=== PATIENT | female | born 1975 | race Caucasian/White ===

== ENCOUNTER 2022-01-18 05:42 | Observation (INO) ==
[2022-01-18 07:19] LABS: Albumin Globulin Ratio 1.6 (0.9-2); Albumin Level 4.2 gm/dl (3.4-5.0); BUN Creatinine Ratio 11.5 (10-20); Bilirubin,Total 0.6 mg/dl (0.2-1.0); Calcium 8.6 mg/dl (8.5-10.1); Creatinine Clr Calc Pharmacy 41.3 ml/min; Est GFR (African American) 35.6 ml/min; Est GFR (Non-African American) 30.7 ml/min; Globulin 2.7 gm/dl (2.5-4.0); Potassium 3.4 mmol/L (3.5-5.1); Total Protein 6.9 gm/dl (6.0-8.3)
[2022-01-18 07:45] LABS: Adenovirus PCR Not Detected (NotDetected); Bordetella parapertussis PCR Not Detected (NotDetected); Bordetella pertussis PCR Not Detected (NotDetected); Chlamydia pneumoniae PCR Not Detected (NotDetected); Coronavirus 229E PCR Not Detected (NotDetected); Coronavirus HKU1 PCR Not Detected (NotDetected); Coronavirus NL63 PCR Not Detected (NotDetected); Coronavirus OC43PCR Not Detected (NotDetected); Human Metapneumovirus PCR Not Detected (NotDetected); Influenza A PCR Not Detected (NotDetected); Influenza B PCR Not Detected (NotDetected); Mycoplasma pneumoniae PCR Not Detected (NotDetected); Parainfluenza Virus 1 PCR Not Detected (NotDetected); Parainfluenza Virus 2 PCR Not Detected (NotDetected); Parainfluenza Virus 3 PCR Not Detected (NotDetected); Parainfluenza Virus 4 PCR Not Detected (NotDetected); Respiratory Syncytial VirusPCR Not Detected (NotDetected); Rhinovirus/Enterovirus PCR Not Detected (NotDetected)
[2022-01-18 07:45] LABS: Hematocrit (blood only) 48.3 % (34.1-44.9); Mean Corpuscular Hemoglobin 32.1 pg (25.0-34.0); Mean Corpuscular Hgb Conc 35.2 g/dL (32.0-36.0); Mean Corpuscular Volume 91.3 fL (80.0-100.0); Mean Platelet Volume 12.1 fL (9.4-12.3); Platelet Count 92 K/uL (130-400); RDW Coefficient of Variation 12.5 % (11.5-14.5); RDW Standard Deviation 41.9 fL (36.4-46.3); Red Blood Count 5.29 M/uL (3.93-5.22)
[2022-01-18 07:46] LABS: Basophils # (auto) 0.07 K/uL (0-0.2); Basophils % (auto) 0.9 %; Eosinophils # (auto) 0.11 K/uL (0-0.50); Eosinophils % (auto) 1.5 %; Immature Granulocytes # (auto) 0.12 K/uL (0.00-0.02); Immature Granulocytes % (auto) 1.6 %; Lymphocytes # (auto) 0.31 K/uL (1.2-3.4); Lymphocytes % (auto) 4.1 %; Monocytes # (auto) 0.13 K/uL (0.24-0.82); Monocytes % (auto) 1.7 %; Neutrophils # (auto) 6.76 K/uL (1.4-6.5); Neutrophils % (auto) 90.2 %; Platelet Estimate Decreased (Normal); RBC Morphology Unremarkable
[2022-01-18 07:49] LABS: Coronavirus CoV-2 (COVID19)PCR DETECTED (NotDetected)
[2022-01-18] MEDS ORDERED: FAMOTIDINE 20MG IV PUSH 20 MG/5 ML SYR IV STA (07:52)
[2022-01-18] MEDS ORDERED: SODIUM CHLORIDE 0.9% 1000ML 1,000 ML IV ONE (07:52)
[2022-01-18] MEDS ORDERED: dexAMETHasone**PF** 10 MG/ML VIAL IV ONE (07:52)
[2022-01-18] MEDS ORDERED: SODIUM CHLORIDE 0.9% 1000ML 1,000 ML IV STA (07:52)
[2022-01-18] MEDS ORDERED: diphenhydrAMINE 50 MG/ML VIAL ONE (07:57)
--- NOTE | 2022-01-18 08:06 | Emergency Department Note ---
Impression & Plan COVID-19, Diffuse papular rash, GARFIELD (acute kidney injury) ED Provider Note INFORMANT: Patient ED PROVIDER(S): Feroz Butt MD CHIEF COMPLAINT: Fever and rash PLAN: Disposition: Admitted Condition: Good Outpatient prescription management: none Referral: None MEDICAL DECISION MAKING: Patient presented with fever and a papular rash on the body. A work-up was initiated. Her CBC showed a mild thrombocytopenia. Chemistry panel revealed acute kidney injury with an elevated creatinine. The patient was found to have a positive COVID on bio fire. Mild elevation of inflammatory markers. Procalcitonin negative. The patient was hydrated. She was treated with Decadron, Pepcid, and Benadryl due to the rash. This is concerning with the acute kidney injury. She may be having a reaction to the Bactrim in addition to the COVID illness. Given the acute kidney injury she will require further management in the hospital. Consultation was made with the [facility] service.. Patient was admitted for further management. Triage Nursing notes reviewed and agree them. Vital Signs: reviewed and remarkable for no significant abnormalities Differential diagnosis: Viral syndrome, allergic reaction, serum sickness, pneumonia, influenza, meningitis, urinary tract infection, sepsis, bacteremia, as well as other patho logies. Diagnostics interpreted by me: ECG: none Cardiac Monitoring: Cardiac monitoring ordered by me: The patient was placed on continuous cardiac monitoring and observed. It revealed a normal sinus rhythm at 81 beats per minute without ectopy or evidence of dysrhythmia. Imaging studies: Chest x-ray. Findings: A chest x-ray was performed and revealed no pneumothorax, effusion, infiltrate, pulmonary edema, free air under the diaphragm, or wide mediastinum. Impression: No acute disease. HPI: The patient is a 46year old female who presents to the Emergency Room with complaints of flulike symptoms. This started 4 days ago and is worsening. The patient also notes the following associated symptoms, diffuse rash over her body, itchiness, myalgias, feeling feverish. The patient has found no relieving factors. Current pain is rated as 8/10. Patient notes that she became sick while at a business meeting in [place]. She became symptomatic 2 days after arrival. Patient noted last week she was diagnosed with an infected breast biopsy site and was placed on Bactrim. Pt denies LOC, oral lesions visual changes, neck pain, chest pain, breathing difficulties, nausea, vomiting, abdominal pain, back pain, melena, hematochezia, urinary symptoms, numbness, focal weakness, lymphadenopathy, sloughing of the skin, or other complaints. ROS: See above HPI for pertinent positives & negatives. A total of 10 systems reviewed and were otherwise negative. PAST MEDICAL HISTORY:See Below , patient denies chronic medical issues PAST SURGICAL HISTORY:See Below, FAMILY HISTORY:See Below SOCIAL HISTORY:See Below, smoker HOME MEDICATIONS:See Below ALLERGIES:See Below VITALS:See Below PHYSICAL EXAMINATION: GENERAL: Awake, alert, uncomfortable-appearing, in no distress HENT: Normocephalic, atraumatic. Oropharynx unremarkable. EYES: Normal conjunctiva. Sclera non-icteric. NECK: Inspection normal. Non-tender. Supple. No nuchal rigidity. FROM. No masses. RESPIRATORY: Clear to auscultation. No wheezes. No rales. Normal respiratory effort. CARDIAC: Normal rate. Normal rhythm. No murmurs. No rubs. Extremities warm and well perfused. Pulses equal. No JVD. GI: Soft, non-distended. No tenderness to palpation. No rebound or guarding. No masses. BREAST: The patient has a biopsy site just medial to the right nipple. No drainage noted. No crepitus or significant induration. The skin in that area is erythematous however most of the trunk is erythematous as well as noted below. MUSCULOSKELETAL: Atraumatic. Chest examination reveals no tenderness. The back is symmetrical on inspection without obvious abnormality. There is no CVA tenderness to palpation. No joint edema. LOWER EXTREMITIES: Calves are equal size bilaterally and non-tender. No edema. No discoloration. NEURO: Normal sensorium. No sensory or motor deficits noted. SKIN: Patient has diffuse erythematous papular rash over most of the body. There is some involvement of the palms. No target lesions. No bull's-eye appea yvette. Some coalescence noted on the posterior upper extremities. No petechia, purpura, vesicles or jaundice noted. Feroz Butt MD Past Med/Surg History Social History Smoking Status: Current every day smoker Feels Safe at Home: Yes Allergies Allergies Allergy/AdvReac Type Severity Reaction Status Date / Time No Known Allergies Allergy Unknown Verified 09/23/19 14:39 Home Meds Home Medications Medication Instructions Recorded Confirmed norethindrone (contraceptive) 0.35 0.35 mg PO DAILY 09/23/19 09/23/19 mg tablet (Brandi) Previous Rx's Medication Instructions Recorded omeprazole 20 mg capsule,delayed 20 mg PO DAILY #90 caps 09/23/19 release ondansetron HCl 4 mg tablet 4 mg PO Q8H PRN nausea and 09/23/19 (Zofran) vomiting #30 tabs Results & Data (ED) Vital Signs Vital Signs - 24 hr 01/18/22 05:46 01/18/22 05:43 01/18/22 06:44 Temperature 37.5 C 37.0 C Temperature Source Temporal Artery Scan Oral Pulse Rate 99 H Pulse Rate [Apical] 64 78 Pulse Rate from SpO2 Sensor Pulse Rhythm [Apical] Regular Regular Pulse Strength [Apical] Normal Respiratory Rate 20 16 16 Respiratory Effort / Characteristics Non-Labored Non-Labored Respiratory Depth Normal Normal Respiratory Pattern Regular Blood Pressure 107/70 Blood Pressure [Right Arm] 135/83 126/71 Blood Pressure Mean 82 Blood Pressure Mean [Right Arm] 100 89 Pulse Oximetry 98 98 98 Oxygen Delivery Method Room Air Room Air Sepsis Recent Fever Within 48 Hours Yes Sepsis New/Unexplained Change in Mental Status N/A Sepsis Action Taken by Nursing No Action Required 01/18/22 07:00 01/18/22 07:30 01/18/22 08:00 Temperature Temperature Source Pulse Rate 81 76 81 Pulse Rate [Apical] Pulse Rate from SpO2 Sensor 82 76 82 Pulse Rhythm [Apical] Pulse Strength [Apical] Respiratory Rate 21 15 14 Respiratory Effort / Characteristics Respiratory Depth Respiratory Pattern Blood Pressure 114/70 94/48 L 106/70 Blood Pressure [Right Arm] Blood Pressure Mean 84 63 82 Blood Pressure Mean [Right Arm] Pulse Oximetry 97 98 98 Oxygen Delivery Method Room Air Room Air Room Air Sepsis Recent Fever Within 48 Hours Sepsis New/Unexplained Change in Mental Status Sepsis Action Taken by Nursing 01/18/22 08:30 01/18/22 09:30 Temperature Temperature Source Pulse Rate 80 83 Pulse Rate [Apical] Pulse Rate from SpO2 Sensor 80 83 Pulse Rhythm [Apical] Pulse Strength [Apical] Respiratory Rate 17 21 Respiratory Effort / Characteristics Respiratory Depth Respiratory Pattern Blood Pressure 117/86 110/82 Blood Pressure [Right Arm] Blood Pressure Mean 96 91 Blood Pressure Mean [Right Arm] Pulse Oximetry 100 97 Oxygen Delivery Method Room Air Room Air Sepsis Recent Fever Within 48 Hours Sepsis New/Unexplained Change in Mental Status Sepsis Action Taken by Nursing Laboratory Data Result diagrams: 01/18/22 06:00 01/18/22 06:00 Lab Results 01/18/22 01/18/22 01/18/22 Range/Units 06:00 06:00 06:19 WBC 7.50 (4.8-10.8) K/ul RBC 5.29 H (3.93-5.22) M/uL Hgb 17.0 H (12.0-16.0) g/dl Hct 48.3 H (34.1-44.9) % MCV 91.3 (80.0-100.0) fL MCH 32.1 (25.0-34.0) pg MCHC 35.2 (32.0-36.0) g/dL RDW Std Deviation 41.9 (36.4-46.3) fL RDW Coeff of Addis 12.5 (11.5-14.5) % Plt Count 92 L (130-400) K/uL MPV 12.1 (9.4-12.3) fL Immature Gran % (Auto) 1.6 % Neut % (Auto) 90.2 % Lymph % (Auto) 4.1 % [place] % (Auto) 1.7 % Eos % (Auto) 1.5 % Baso % (Auto) 0.9 % Neut # (Auto) 6.76 H (1.4-6.5) K/uL Lymph # (Auto) 0.31 L (1.2-3.4) K/uL [place] # (Auto) 0.13 L (0.24-0.82) K/uL Eos # (Auto) 0.11 (0-0.50) K/uL Baso # (Auto) 0.07 (0-0.2) K/uL Immature Gran # (Auto) 0.12 H (0.00-0.02) K/uL Platelet Estimate Decreased L (Normal) RBC Morphology Unremarkable ESR (0-20) mm/hr Sodium 132 L (136-145) mmol/L Potassium 3.4 L (3.5-5.1) mmol/L Chloride 101 (98-107) mmol/L Carbon Dioxide 20 L (21-32) mmol/L Anion Gap 11 (3-11) BUN 22 (6-23) mg/dl Creatinine 1.92 H (0.6-1.2) mg/dl Est Cr Clr Drug Dosing 41.3 ml/min Est GFR ( Amer) 35.6 ml/min Est GFR (Non-Af Amer) 30.7 ml/min BUN/Creatinine Ratio 11.5 (10-20) Glucose 115 H (70-99(Fasting)) mg/dl Calcium 8.6 (8.5-10.1) mg/dl Total Bilirubin 0.6 (0.2-1.0) mg/dl AST 35 (13-39) U/L ALT 35 (7-52) U/L Alkaline Phosphatase 60 (34-104) U/L C-Reactive Protein (0-0.5) mg/dl Total Protein 6.9 (6.0-8.3) gm/dl Albumin 4.2 (3.4-5.0) gm/dl Globulin 2.7 (2.5-4.0) gm/dl Albumin/Globulin Ratio 1.6 (0.9-2) Procalcitonin (0-0.5) ng/ml Adenovirus (PCR) Not Detected (NotDetected) B. pertussis DNA (PCR) Not Detected (NotDetected) B.parapertussis DNA PCR Not Detected (NotDetected) C. pneumoniae DNA (PCR) Not Detected (NotDetected) Coronavirus OC43 (PCR) Not Detected (NotDetected) Coronavirus HKU1 (PCR) Not Detected (NotDetected) Coronavirus 229E (PCR) Not Detected (NotDetected) SARS-CoV-2 (PCR) DETECTED A* (NotDetected) Coronavirus NL63 (PCR) Not Detected (NotDetected) Human Metapneumovir PCR Not Detected (NotDetected) Influenza Type A (PCR) Not Detected (NotDetected) Influenza Type B (PCR) Not Detected (NotDetected) M. pneumoniae (PCR) Not Detected (NotDetected) Parainfluenza 1 (PCR) Not Detected (NotDetected) Parainfluenza 2 (PCR) Not Detected (NotDetected) Parainfluenza 3 (PCR) Not Detected (NotDetected) Parainfluenza 4 (PCR) Not Detected (NotDetected) RSV (PCR) Not Detected (NotDetected) Entero/Rhino (PCR) Not Detected (NotDetected) 01/18/22 01/18/22 01/18/22 Range/Units 08:14 08:14 08:14 WBC (4.8-10.8) K/ul RBC (3.93-5.22) M/uL Hgb (12.0-16.0) g/dl Hct (34.1-44.9) % MCV (80.0-100.0) fL MCH (25.0-34.0) pg MCHC (32.0-36.0) g/dL RDW Std Deviation (36.4-46.3) fL RDW Coeff of Addis (11.5-14.5) % Plt Count (130-400) K/uL MPV (9.4-12.3) fL Immature Gran % (Auto) % Neut % (Auto) % Lymph % (Auto) % [place] % (Auto) % Eos % (Auto) % Baso % (Auto) % Neut # (Auto) (1.4-6.5) K/uL Lymph # (Auto) (1.2-3.4) K/uL [place] # (Auto) (0.24-0.82) K/uL Eos # (Auto) (0-0.50) K/uL Baso # (Auto) (0-0.2) K/uL Immature Gran # (Auto) (0.00-0.02) K/uL Platelet Estimate (Normal) RBC Morphology ESR 3 (0-20) mm/hr Sodium (136-145) mmol/L Potassium (3.5-5.1) mmol/L Chloride (98-107) mmol/L Carbon Dioxide (21-32) mmol/L Anion Gap (3-11) BUN (6-23) mg/dl Creatinine (0.6-1.2) mg/dl Est Cr Clr Drug Dosing ml/min Est GFR ( Amer) ml/min Est GFR (Non-Af Amer) ml/min BUN/Creatinine Ratio (10-20) Glucose (70-99(Fasting)) mg/dl Calcium (8.5-10.1) mg/dl Total Bilirubin (0.2-1.0) mg/dl AST (13-39) U/L ALT (7-52) U/L Alkaline Phosphatase (34-104) U/L C-Reactive Protein 6.88 H (0-0.5) mg/dl Total Protein (6.0-8.3) gm/dl Albumin (3.4-5.0) gm/dl Globulin (2.5-4.0) gm/dl Albumin/Globulin Ratio (0.9-2) Procalcitonin 0.46 (0-0.5) ng/ml Adenovirus (PCR) (NotDetected) B. pertussis DNA (PCR) (NotDetected) B.parapertussis DNA PCR (NotDetected) C. pneumoniae DNA (PCR) (NotDetected) Coronavirus OC43 (PCR) (NotDetected) Coronavirus HKU1 (PCR) (NotDetected) Coronavirus 229E (PCR) (NotDetected) SARS-CoV-2 (PCR) (NotDetected) Coronavirus NL63 (PCR) (NotDetected) Human Metapneumovir PCR (NotDetected) Influenza Type A (PCR) (NotDetected) Influenza Type B (PCR) (NotDetected) M. pneumoniae (PCR) (NotDetected) Parainfluenza 1 (PCR) (NotDetected) Parainfluenza 2 (PCR) (NotDetected) Parainfluenza 3 (PCR) (NotDetected) Parainfluenza 4 (PCR) (NotDetected) RSV (PCR) (NotDetected) Entero/Rhino (PCR) (NotDetected) Administered Medications Sodium Chloride (Nss 1000ml) 1,000 mls @ 125 mls/hr IV .Q8H STA Stop: 01/18/22 15:51 Last Admin: 01/18/22 08:00 Dose: 125 mls/hr Documented By: NH Potassium Chloride/Sodium Chloride (Normal Saline W/20 Meq Kcl) 20 meq in 1,000 mls @ 100 mls/hr IV .Q10H TAMEKA Stop: 02/17/22 13:59 Last Admin: 01/18/22 14:07 Dose: 100 mls/hr Documented By: NH Discontinued Medications Acetaminophen (Acetaminophen 500 Mg Tab) 1,000 mg PO NOW STA Stop: 01/18/22 11:32 Last Admin: 01/18/22 11:35 Dose: 1,000 mg Documented By: PREMA Dexamethasone Sodium Phosphate (DexamethasonePf 10 Mg/Ml Vial) 10 mg IV NOW ONE Stop: 01/18/22 07:53 Last Admin: 01/18/22 07:59 Dose: 10 mg Documented By: ANY Diphenhydramine HCl (Diphenhydramine 50 Mg/Ml Vial) Confirm Administered Dose 50 mg .ROUTE .STK-MED ONE Stop: 01/18/22 07:58 Last Admin: 01/18/22 08:00 Dose: Not Given Documented By: NAY Sodium Chloride (Nss 1000ml) 1,000 mls @ 999 mls/hr IV .Q1H1M ONE Stop: 01/18/22 08:52 Last Infusion: 01/18/22 11:27 Dose: 0 mls/hr Documented By: Admin: 01/18/22 08:00 Dose: 999 mls/hr Documented By: ANY Famotidine (Pepcid 20mg Iv Push) 20 mg in 5 mls @ 2.5 mls/min IV NOW STA Stop: 01/18/22 07:53 Last Admin: 01/18/22 08:00 Dose: 2.5 mls/min Documented By: ANY Diphenhydramine HCl 12.5 mg/ (Syringe) 0.25 mls @ 1 mls/hr IV NOW STA Stop: 01/18/22 08:06 Last Admin: 01/18/22 09:01 Dose: 1 mls/hr Documented By: ANY Methylprednisolone (Methylprednisolone 125 Mg/2 Ml Vial) Confirm Administered Dose 125 mg .ROUTE .STK-MED ONE Stop: 01/18/22 14:04 Last Admin: 01/18/22 14:06 Dose: Not Given Documented By: ANY Imaging Data Radiologist's Impression: Chest X-Ray 01/18/22 07:52 XR chest 1V portable CLINICAL HISTORY: fever, +covid COMPARISON STUDY: No previous studies for comparison. FINDINGS: Lung volumes are normal. Lungs are clear. There is no pneumothorax or pleural effusion. Cardiac size is normal. Mediastinal contours are normal. There is no evidence for pulmonary edema. Mild interstitial prominence is likely within normal limits. Slight hazy right lower opacities likely due to overlying soft tissues. IMPRESSION: No acute cardiopulmonary findings. ACT 112: Negative or not required by law. Electronically signed by: Luis Chavarria M.D. 01/18/2022 8:28 AM Discharge Plan Visit Data Chief Complaint: Flu Like Symptoms Stated Complaint: HIGH FEVER, RASH ALL OVER BODY, NAUSEA ED Provider: Feroz Butt Discharge Problem: COVID-19, Diffuse papular rash, GARFIELD (acute kidney injury) Patient Disposition: Admitted As Inpatient Discharge Instructions Interventions: ED Discharge Assessment Last Done: 01/18/22 12:47
--- NOTE | 2022-01-18 08:29 | XRay Report ---
XR chest 1V portable CLINICAL HISTORY: fever, +covid COMPARISON STUDY: No previous studies for comparison. FINDINGS: Lung volumes are normal. Lungs are clear. There is no pneumothorax or pleural effusion. Car diac size is normal. Mediastinal contours are normal. There is no evidence for pulmonary edema. Mild interstitial prominence is likely within normal limits. Slight hazy right lower opacities likely due to overlying soft tissues. IMPRESSION: No acute cardiopulmonary findings. ACT 112: Negative or not required by law. Electronically signed by: Luis Chavarria M.D. 01/18/2022 8:28 AM
--- NOTE | 2022-01-18 10:06 | History & Physical Report ---
Date of Service January 18, 2022 Assessment & Plan (1) Drug rash: Plan: Apparent sulfa reaction. Bactrim has been discontinued. Scheduled intravenous Solu-Medrol every 6 hours. Benadryl as needed itching (2) COVID-19: Plan: She has mild viral symptoms at this time. No hypoxia or respiratory failure. Supportive care (3) GARFIELD (acute kidney injury): Plan: IV fluids. Monitor intake and output. Serial lab studies (4) S/P breast biopsy, right: Plan: Completed approximately 1 week ago. She has outpatient follow-up scheduled Plan Observation status. Hopefully she can go home tomorrow, January 19 History of Present Illness Chief Complaint: Generalized itching and rash Primary Care Provider: [facility] 46-year-old female who underwent right breast biopsy 1 week ago and has been on Bactrim DS for 1 week. She developed a diffuse maculopapular pruritic rash and came to the ED for evaluation. She was found to have acute renal insufficiency with creatinine 1.9. Potassium was also mildly low at 3.4. She appears to have developed a reaction to sulfa with a diffuse allergic rash and will need steroid therapy and IV fluids at least overnight. Potassium will be corrected. She is placed on observation status. Allergies Allergy/AdvReac Type Severity Reaction Status Date / Time No Known Allergies Allergy Unknown Verified 09/23/19 14:39 Home Medications Medication Instructions Recorded Confirmed Type norethindrone (contraceptive) 0.35 0.35 mg PO DAILY 09/23/19 09/23/19 History mg tablet (Brandi) omeprazole 20 mg capsule,delayed 20 mg PO DAILY #90 caps 09/23/19 09/23/19 Rx release ondansetron HCl 4 mg tablet 4 mg PO Q8H PRN nausea and 09/23/19 09/23/19 Rx (Zofran) vomiting #30 tabs Past Med/Surg History Social History Smoking Status: Current every day smoker Feels Safe at Home: Yes Review of Systems Review of Systems: Constitutional-no fever or chills ENT-no blurred vision, no double vision, no epistaxis, no sore throat Respiratory-no cough, no wheezing, no shortness of breath Cardiac-no palpitations, no chest pain, no syncope GI-no nausea, vomiting, diarrhea, melena, hematochezia -no urinary retention, no urinary incontinence, no dysuria, no hematuria Musculoskeletal-no joint pain, no muscle tenderness Skin-diffuse pruritic maculopapular rash Neuro-no isolated weakness, no paresthesia, no weakness Psych-no depression, no anxiety Physical Exam Physical Exam: General-alert and oriented x3, no fevers, no chills HEENT-head atraumatic and normocephalic, pupils equal and reactive to light, extraocular muscles intact Neck-no lymphadenopathy or thyromegaly, trachea midline Chest-clear to auscultation percussion. No rales wheezing or rhonchi Cardiac-regular rate and rhythm, normal S1 and S2, no murmurs Abdomen-normal bowel sounds, nontender, no hepatosplenomegaly Extremities-no cyanosis, clubbing, or edema Neuro-cranial nerves II through XII intact, motor and sensory function within normal limits, strength symmetrical , no focal deficits Integumentdiffuse pruritic maculopapular rash on all extremities and trunk Psych-normal affect, normal mood Results & Data Results & Data ([facility]) Vital Signs (Past 12 Hours) Vital Signs Temp Pulse Pulse Resp BP BP Pulse Ox 01/18/22 07:00 81 21 114/70 97 01/18/22 06:44 78 16 126/71 98 01/18/22 05:43 37.0 C 64 16 135/83 98 01/18/22 05:46 37.5 C 99 H 20 107/70 98 O2 Del Method 01/18/22 07:00 Room Air 01/18/22 06:44 Room Air 01/18/22 05:43 01/18/22 05:46 Room Air Laboratory Results 01/18/22 06:00 01/18/22 06:00 Code Status & VTE Plan Code Status Full code VTE Prophylaxis Plan VTE Prophylaxis will be ordered: Yes PG Care Time/CCT Total # of Minutes Spent Total Time Spent with Patient: Total time spent is greater than 50% in coordination of care (as documented) at patient's floor/unit and/or counseling patient: Coding Level of Care Code INT OBSERVATION CARE 50M LVL 2 Diagnoses Drug rash L27.0 COVID-19 U07.1 GARFIELD (acute kidney injury) N17.9 S/P breast biopsy, right Z98.890
[2022-01-18] MEDS ORDERED: ACETAMINOPHEN 500 MG TAB PO STA (11:31)
[2022-01-18] MEDS ORDERED: ALUMINUM/MAGNESIUM SUSP 30 ML UDC PO PRN (12:48)
[2022-01-18] MEDS ORDERED: methylPREDNISolone 125 MG/2 ML VIAL IV SCH (12:48)
[2022-01-18] MEDS ORDERED: MAGNESIUM HYDROXIDE SUSP 30 ML UDC PO PRN (12:48)
[2022-01-18] MEDS ORDERED: ONDANSETRON INJ 2 MG/ML 2 ML VIAL IV PRN (12:48)
[2022-01-18] MEDS ORDERED: ACETAMINOPHEN 325 MG TAB PO PRN (12:48)
[2022-01-18] MEDS ORDERED: diphenhydrAMINE Capsule 25 MG CAP PO PRN (12:48)
[2022-01-18] MEDS ORDERED: methylPREDNISolone 125 MG/2 ML VIAL ONE (14:03)
[2022-01-18] MEDS: NSS + 20MEQ KCL 20 MEQ/1,000 ML BAG IV SCH (14:07)
[2022-01-18] MEDS: methylPREDNISolone 60 MG in SYRINGE 0 ML IV SCH ×2 (14:37→20:07)
[2022-01-19] MEDS: NSS + 20MEQ KCL 20 MEQ/1,000 ML BAG IV SCH ×2 (00:13→10:58)
[2022-01-19] MEDS: methylPREDNISolone 60 MG in SYRINGE 0 ML IV SCH ×3 (01:51→15:18)
[2022-01-19 08:08] LABS: BUN Creatinine Ratio 20.5 (10-20); Calcium 8.2 mg/dl (8.5-10.1); Creatinine Clr Calc Pharmacy 95.4 ml/min; Est GFR (Non-African American) 84.6 ml/min; Potassium 4.2 mmol/L (3.5-5.1)
[2022-01-19] MEDS ORDERED: PANTOprazole 40 MG TAB PO SCH (09:00)
[2022-01-19 09:26] LABS: Hematocrit (blood only) 39.5 % (34.1-44.9); Hemoglobin 13.9 g/dl (12.0-16.0); Mean Corpuscular Hemoglobin 31.9 pg (25.0-34.0); Mean Corpuscular Hgb Conc 35.2 g/dL (32.0-36.0); Mean Corpuscular Volume 90.6 fL (80.0-100.0); Mean Platelet Volume 13.3 fL (9.4-12.3); Platelet Count 86 K/uL (130-400); RDW Standard Deviation 42.9 fL (36.4-46.3); Red Blood Count 4.36 M/uL (3.93-5.22); White Blood Count 5.84 K/ul (4.8-10.8)
[2022-01-19 09:35] LABS: Basophils # (auto) 0.03 K/uL (0-0.2); Basophils % (auto) 0.5 %; Echinocytes 2+; Eosinophils # (auto) 0.02 K/uL (0-0.50); Eosinophils % (auto) 0.3 %; Immature Granulocytes # (auto) 0.04 K/uL (0.00-0.02); Immature Granulocytes % (auto) 0.7 %; Lymphocytes # (auto) 0.72 K/uL (1.2-3.4); Lymphocytes % (auto) 12.3 %; Monocytes # (auto) 0.22 K/uL (0.24-0.82); Monocytes % (auto) 3.8 %; Neutrophils # (auto) 4.81 K/uL (1.4-6.5); Neutrophils % (auto) 82.4 %
--- NOTE | 2022-01-19 14:41 | Discharge Summary ---
Date of Service date of admission - January 18, 2022 date of discharge - January 19, 2022 Admission HPI Per Admitting Provider 46-year-old female who underwent right breast biopsy 1 week ago and has been on Bactrim DS for 1 week. She developed a diffuse maculopapular pruritic rash and came to the ED for evaluation. She was found to have acute renal insufficiency with creatinine 1.9. Potassium was also mildly low at 3.4. She appears to have developed a reaction to sulfa with a diffuse allergic rash and will need steroid therapy and IV fluids at least overnight. Potassium will be corrected. She is placed on observation status. Principal Diagnosis 1. COVID-19 infection 2. Allergic reaction to sulfa drugs 3. Recent right breast biopsy 4. Thrombocytopenia 5. Acute kidney injury Discharge Exam gen - NAD, obese, nontoxic mouth - MMM neck - no JVD heart - RRR, s1 s2, no murmur lungs - CTA b/l abd - soft NT ND BS+ ext - no edema, pulses 2+ b/l skin - resolving erythematous rash on legs, arms, torso, etc right breast - chaperoned by nursing staff - prior breast biopsy site clean, no drainage, no erythema, no cellulitis (mild induration only) Discharge Data Allergies Allergy/AdvReac Type Severity Reaction Status Date / Time Sulfa (Sulfonamide Allergy Severe Rash Verified 01/19/22 14:09 Antibiotics) Ordered Studies Chest X-Ray 01/18/22 07:52 XR chest 1V portable CLINICAL HISTORY: fever, +covid COMPARISON STUDY: No previous studies for comparison. FINDINGS: Lung volumes are normal. Lungs are clear. There is no pneumothorax or pleural effusion. Cardiac size is normal. Mediastinal contours are normal. There is no evidence for pulmonary edema. Mild interstitial prominence is likely within normal limits. Slight hazy right lower opacities likely due to overlying soft tissues. IMPRESSION: No acute cardiopulmonary findings. ACT 112: Negative or not required by law. Electronically signed by: Luis Chavarria M.D. 01/18/2022 8:28 AM Hospital Course (1) Drug rash: 2nd to bactrim. Sulfa added to allergy list in her medical record. Diffuse rash improved with IV solumedrol. I cannot exclude that her GARFIELD and low platelets were also due to her allergic reaction (ie serum sickness reaction). Regardless her rash improved significantly while here. She will take dexamethasone 6mg po daily x 3 days post-discharge for any residual rash/itching. She can use OTC benadryl prn for symptomatic relief as well. (2) COVID-19: Mild symptoms, no evidence of pneumonia, no hypoxia. No indication for Remdesivir usage. Steroids were employed for #1 above. (3) GARFIELD (acute kidney injury): Peak Cr 1.9. Improved to 0.8 on day of discharge. 2nd to #1 and possibly #2. (4) S/P breast biopsy, right: Completed approximately 1 week prior to admission by Dr Augusto Lord, [facility]. There was concern about local skin infection of the biopsy site/cyst - hence the recent use of bactrim. During her brief stay the biopsy site was free of infection. No further antibiotics were given. She was asked to follow-up with Dr Lord for the right breast. (5) Thrombocytopenia: Range 86-92. Either 2nd to COVID infection itself OR could have been 2nd to a serum sickness like reaction from the bactrim. She was instructed to have a repeat CBC with diff within 1 wee of discharge to ensure stability of the platelet count. Other cell lines were wnl. Plan The patient was taking a progestin-only OCP at home prior to admission. Counseling was given that in light of the known hypercoagulable state of COVID infection and the theoretical risk of VTE - even with progestin-only OCP - that she should consider d/c of the OCP at least Forfor the time being. Fortunately the risk of VTE with progestin-only OCPs is much lower than with traditional OCPs. Total Time Total Time Spent Total Time Spent (In Minutes): 25 Discharge Plan Discharge Items Patient Disposition: Home - Self-Care Reason For Visit: DRUG RASH, COVID-19 Infection Discharge Diagnosis: 1. Drug reaction/allergic reaction to bactrim (sulfa drug allergy) 2. COVID-19 infection 3. Recent right breast biopsy 4. Recent right breast infection 5. Low platelets - likely due to COVID-19 infection; allergic reaction could have caused the platelets to drop as well; repeat platelet count needed after discharge 6. Acute kidney injury - resolved; may have been due to your allergic reaction, COVID, or a combination of those factors Activity: As commented below Activity Comment: gradually increase your activities over the next week or so Exercise/Sports: Wait until after follow-up appointment Non-emergency contact: Primary Care Provider and Surgeon Call non-emergency contact if: you have any medication questions, your symptoms worsen, your wound has increased redness, your wound has increased drainage and your wound pain has increased Follow-up/Referrals: Flavio Lord MD [Physician] - (please keep your scheduled follow-up visit with Dr Lord) [facility],Medicine [Primary Care Provider] - (see CVIM in 1 week) Diet: Regular Addtl Attending Provider Instructions: Ms Fernando, You were hospitalized for a series of issues including a severe, diffuse rash likely due to an allergic reaction to sulfa antibiotic, COVID-19 infection, and acute kidney injury. Your rash is much better following use of IV steroids. We do not see signs of pneumonia from your COVID infection. Acute kidney injury means that your creatinine, which is a blood test for the kidneys, was abnormal. It had risen to 1.9 but has normalized - it is now normal at 0.8. During the stay your platelets were low in the 80s (normal 150 or higher). This was likely due to your COVID infection, but on occasion severe reactions to medications can cause low platelets. The platelet count should normalize in the next week or so. Recommendations - 1. Please take dexamethasone 6mg once daily for 3 days. Take your first dose tomorrow, 01/20/22. Take with food. This will resolve any residual rash. 2. For your rash, itching, etc you can take [id number] benadryl 25mg every 6 hours as needed/as desired. 3. Please have a repeat CBC ("blood count") rechecked in 1 week to ensure your platelet count has normalized. 4. OK to take tylenol for headache, aches/pains, etc. This won't cause any troubles with your platelets. HOWEVER - please stop any motrin, ibuprofen, aspirin, naprosyn, or alleve until the platelets are rechecked. 5. Your control pill that you take ("Brandi") is a progestin-only control. It carries a very, very low risk of DVT blood clots in comparison to other types of control. The risk of blood clots with this medication, unfortunately, is not zero however. For reasons uncertain COVID infection in some individuals increases the risk of DVT blood clots. It may be prudent to hold your Brandi control pill for the next month or so because of your COVID illness. If you do not feel comfortable stopping the Brandi please contact the provider that prescribes this to you and ask his/her opinion about whether to stay on the Brandi during your COVID illness recovery. 6. Please plan to stay at home and isolate from others for about 5 more days. Try to avoid going out into the community during this time unless it is absolutely necessary. Avoid visitors to your home during the isolation period. This coming Sunday morning, as long as you are feeling better and have had no fevers on Sunday/Sunday, you can stop your isolation period. 7. Try to rest and focus on good nutrition/hydration during your recovery period. 8. If you have any worsening redness, drainage, or tenderness/pain from the right breast please contact Dr Lord's office as soon as possible. Follow-up - see separate section Return to [facility] if - * your rash returns, worsens, etc * you have shortness of breath or chest pain * you have any concerns about your right breast cyst * any other concerns Please continue to feel better! Dr Guerra Pending Studies at Discharge: No Stand-Alone Forms: My [facility], Smoking Cessation Medications and DC Order Prescriptions: Continued omeprazole 20 mg capsule,delayed release(DR/EC) 20 mg PO DAILY Qty: 90 3RF ondansetron HCl [Zofran] 4 mg tablet 4 mg PO Q8H PRN (Reason: nausea and vomiting) Qty: 30 1RF Discontinued norethindrone (contraceptive) [Brandi] 0.35 mg tablet 0.35 mg PO DAILY Discharge Orders: Discharge Order (Routine); Ordered 01/19/22 Ordered By: Easton Alejandro/Other Patient Handouts: Caring for Someone Who Has COVID-19, Disin fecting Your Home of COVID-19, COVID-19 Home Care, COVID 19 Flu Differences Admission Data Admit Date/Time: 01/18/22 09:59 Attending Provider: Easton Guerra Admit Provider: Jimmy Farr Primary Care Provider: Lauri [facility],Medicine Other Providers: Easton Guerra Other Interventions: Discharge Summary Assessment (RN) Last Done: 01/19/22 15:20 Coding Level of Care Code 99849 OBS Care - Discharge Diagnoses Drug rash L27.0 COVID-19 U07.1 GARFIELD (acute kidney injury) N17.9 S/P breast biopsy, right Z98.890 Thrombocytopenia D69.6
[2022-01-20 07:09] LABS: Toxic Vacuolation 2+
== END 2022-01-19 16:29 | disposition home or self-care (01) ==
LOC: EDINP 05:42 → ED 05:42 → SUATTDRO 09:59 → 2N 12:47